=== PATIENT | female | born 1990 | race Caucasian/White ===

== ENCOUNTER 2019-05-15 19:25 | Emergency (ER) | payer MEDICAID ==
[~2019-05-15] VITALS: Ht 162.6 cm; Wt 81.8 kg
[2019-05-15 19:39] VITALS: BP 131/74; TEMP 99.5
[2019-05-15] MEDS ORDERED: TAMIFLU 75MG75 MG PO (20:59)
[2019-05-15 21:13] VITALS: PULSE 94
== END 2019-05-15 21:13 | disposition home or self-care (01) ==
LOC: COL.ER 19:25
DX: J11.1 Influenza due to unidentified influenza virus with other respiratory manifestations (principal); Z88.0 Allergy status to penicillin

== ENCOUNTER 2019-06-23 13:05 | Emergency (ER) | payer MEDICAID ==
[~2019-06-23] VITALS: Ht 160 cm; Wt 84.5 kg
[~2019-06-23 13:05] MED LIST: TAMIFLU 75MG75 MG PO
[2019-06-23 13:11] VITALS: BP 122/77; TEMP 97.3
[2019-06-23] MEDS ORDERED: ZOFRAN ODT4 MG PO (14:59)
[2019-06-23 15:15] VITALS: PULSE 79
== END 2019-06-23 15:15 | disposition home or self-care (01) ==
LOC: COL.ER 13:05
DX: S06.0X0A Concussion without loss of consciousness, initial encounter (principal); F17.210 Nicotine dependence, cigarettes, uncomplicated; Y04.0XXA Assault by unarmed brawl or fight, initial encounter; Y92.009 Unspecified place in unspecified non-institutional (private) residence as the place of occurrence of the external cause
CPT/HCPCS: J1885

== ENCOUNTER 2020-01-14 20:39 | Emergency (ER) | payer MEDICAID ==
[~2020-01-14] VITALS: Ht 160 cm; Wt 87.3 kg
[~2020-01-14 20:39] MED LIST changes: +ZOFRAN ODT4 MG PO
[2020-01-14 21:51] VITALS: BP 124/64; PULSE 78; TEMP 98.3
[2020-01-14] MEDS ORDERED: DOXYCYCLINE 10100 MG PO (22:23)
== END 2020-01-14 22:27 | disposition home or self-care (01) ==
LOC: COL.ER 20:39
DX: S70.362A Insect bite (nonvenomous), left thigh, initial encounter (principal); F17.210 Nicotine dependence, cigarettes, uncomplicated; Z88.0 Allergy status to penicillin; W57.XXXA Bitten or stung by nonvenomous insect and other nonvenomous arthropods, initial encounter

== ENCOUNTER 2020-02-22 21:08 | Emergency (ER) | payer MEDICAID ==
[~2020-02-22] VITALS: Ht 160 cm; Wt 89.8 kg
[~2020-02-22 21:08] MED LIST changes: +DOXYCYCLINE 10100 MG PO
[2020-02-22 21:11] VITALS: TEMP 97.8
[2020-02-22 21:41] LABS: BASO % 0.5 % (0.0-2.0); EOS # 0.3 (0.0-0.7); EOS % 4.6 % (0-4.0); GRAN # 4.8 (1.4-6.5); GRAN % 65.7 % (42.2-75.2); HEMATOCRIT 43.6 % (37.0-47.0); HEMOGLOBIN 14.1 g/dl (12.5-16.0); LYMPH # 1.6 (1.2-3.4); LYMPH % 21.4 % (20.0-51.0); MEAN CELL VOLUME 89 fl (80.0-100.0); MEAN CORPUSCULAR HEMOGLOBIN 29 pg (27.0-31.0); MEAN CORPUSCULAR HGB CONC 32 g/dl (33.0-37.0); MEAN PLATELET VOLUME 10.7 fl (7.4-10.4); MONO # 0.5 (0.1-0.6); MONO % 7.4 % (1.7-9.3); PLATELET COUNT 232 K/mm3 (130-400); RED BLOOD COUNT 4.88 M/mm3 (4.10-5.30); REDCELL DISTRIBUTION WIDTH-CV 12.9 % (11.5-14.5)
[2020-02-22 21:51] LABS: COLLECTION METHOD CLEAN CATCH
[2020-02-22 21:52] LABS: ALANINE AMINOTRANSFERASE 26 U/L (4-34); ALBUMIN 4.4 gm/dL (3.5-5.0); ALKALINE PHOSPHATASE 74 U/L (50-136); ANION GAP 8 mmol/L (7-16); AST,SGOT 26 U/L (15-37); BILIRUBIN,TOTAL 0.4 mg/dL (0.0-1.0); BLOOD UREA NITROGEN 9 mg/dL (7-17); CARBON DIOXIDE 25 mmol/L (22-30); CHLORIDE 107 mmol/L (98-107); GLUCOSE 88 mg/dL (74-106); LIPASE 66 U/L (23-300); POTASSIUM 3.9 mmol/L (3.4-5.0); SODIUM 140 mmol/L (137-145); TOTAL PROTEIN 7.7 gm/dL (6.4-8.2)
[2020-02-22 21:53] LABS: C-REACTIVE PROTEIN < 0.5 mg/dL (0.0-0.9)
[2020-02-22 22:09] LABS: AMORPHOUS CRYSTAL Present /uL; MUCOUS Present /lpf; PH 8 (5-8); URINE APPEARANCE Turbid; URINE BACTERIA Rare /hpf; URINE BILIRUBIN Negative (NEGATIVE); URINE BLOOD Negative (NEGATIVE); URINE COLOR Yellow; URINE GLUCOSE Negative (NEGATIVE); URINE KETONE Negative (NEGATIVE); URINE LEUKOCYTE ESTERASE Trace (NEGATIVE); URINE NITRATE Negative (NEGATIVE); URINE PROTEIN(semi-quant) Negative (NEGATIVE); URINE RBC 0-2 /hpf; URINE UROBILINOGEN Negative (NEGATIVE)
[2020-02-22] MEDS ORDERED: MACROBID 1100 MG/CAP PO (22:25)
[2020-02-22 22:50] VITALS: BP 146/70; PULSE 78
== END 2020-02-22 22:50 | disposition home or self-care (01) ==
LOC: COL.ER 21:08
PROVIDERS: Emergency Medicine
DX: R10.2 Pelvic and perineal pain (principal); N39.0 Urinary tract infection, site not specified; Z32.02 Encounter for pregnancy test, result negative; Z98.51 Tubal ligation status; Z88.0 Allergy status to penicillin
CPT/HCPCS: J1885; J2405; J3010; J7030

== ENCOUNTER 2020-04-07 00:03 | Emergency (ER) | payer MEDICAID ==
[~2020-04-07] VITALS: Ht 160 cm; Wt 86.4 kg
[~2020-04-07 00:03] MED LIST changes: +MACROBID 1100 MG/CAP PO
[2020-04-07 00:37] LABS: COLLECTION METHOD CLEAN CATCH
[2020-04-07 00:43] LABS: MUCOUS Present /lpf; PH 5 (5-8); URINE APPEARANCE Hazy; URINE BACTERIA None Seen /hpf; URINE BILIRUBIN Negative (NEGATIVE); URINE BLOOD 1+ (NEGATIVE); URINE COLOR Yellow; URINE GLUCOSE Negative (NEGATIVE); URINE KETONE Negative (NEGATIVE); URINE LEUKOCYTE ESTERASE 2+ (NEGATIVE); URINE NITRATE Negative (NEGATIVE); URINE PROTEIN(semi-quant) Negative (NEGATIVE); URINE UROBILINOGEN Negative (NEGATIVE)
[2020-04-07] MEDS ORDERED: MACROBID 1100 MG/CAP PO (01:05)
[2020-04-07] MEDS ORDERED: FLEXERIL5 MG PO (01:05)
[2020-04-07 01:10] VITALS: BP 132/72; PULSE 87; TEMP 97.6
== END 2020-04-07 01:15 | disposition home or self-care (01) ==
LOC: COL.ER 00:03
PROVIDERS: Nurse Practitioner Primary Care
DX: M62.838 Other muscle spasm (principal); N39.0 Urinary tract infection, site not specified; Z88.0 Allergy status to penicillin

== ENCOUNTER 2020-05-26 11:00 | Emergency (ER) | payer MEDICAID ==
[~2020-05-26] VITALS: Ht 160 cm; Wt 88.1 kg
[~2020-05-26 11:00] MED LIST changes: +FLEXERIL5 MG PO
[2020-05-26 11:06] VITALS: TEMP 96.8
[2020-05-26 11:40] LABS: BASO # 0.1 (0.0-0.2); BASO % 0.7 % (0.0-2.0); EOS # 0.3 (0.0-0.7); EOS % 4.5 % (0-4.0); GRAN # 4.7 (1.4-6.5); GRAN % 66.6 % (42.2-75.2); HEMATOCRIT 44.3 % (37.0-47.0); HEMOGLOBIN 14.2 g/dl (12.5-16.0); LYMPH # 1.4 (1.2-3.4); LYMPH % 19.4 % (20.0-51.0); MEAN CELL VOLUME 87 fl (80.0-100.0); MEAN CORPUSCULAR HEMOGLOBIN 28 pg (27.0-31.0); MEAN CORPUSCULAR HGB CONC 32 g/dl (33.0-37.0); MEAN PLATELET VOLUME 10.8 fl (7.4-10.4); MONO # 0.6 (0.1-0.6); MONO % 8.5 % (1.7-9.3); PLATELET COUNT 208 K/mm3 (130-400); RED BLOOD COUNT 5.11 M/mm3 (4.10-5.30); REDCELL DISTRIBUTION WIDTH-CV 13.5 % (11.5-14.5)
[2020-05-26 11:49] LABS: POTASSIUM 4.4 mmol/L (3.4-5.0)
[2020-05-26 11:53] LABS: ALBUMIN 4.2 gm/dL (3.5-5.0); BILIRUBIN,TOTAL 0.4 mg/dL (0.0-1.0); C-REACTIVE PROTEIN 0.6 mg/dL (0.0-0.9); CALCIUM 9.2 mg/dL (8.4-10.2); CREATININE, serum 0.69 (0.52-1.25); TOTAL PROTEIN 7.6 gm/dL (6.4-8.2)
[2020-05-26 13:41] LABS: COLLECTION METHOD CLEAN CATCH
[2020-05-26] MEDS ORDERED: NORCO 325 MG-51 TAB PO (13:52)
[2020-05-26 13:56] VITALS: BP 125/74; PULSE 79
[2020-05-26 13:56] LABS: MUCOUS Present /lpf; PH 5 (5-8); SQUAMOUS EPITHELIAL 0-2 /hpf; URINE APPEARANCE Clear; URINE BACTERIA None Seen /hpf; URINE BILIRUBIN Negative (NEGATIVE); URINE BLOOD Negative (NEGATIVE); URINE COLOR Yellow; URINE GLUCOSE Negative (NEGATIVE); URINE KETONE Negative (NEGATIVE); URINE LEUKOCYTE ESTERASE Negative (NEGATIVE); URINE NITRATE Negative (NEGATIVE); URINE PROTEIN(semi-quant) Negative (NEGATIVE); URINE RBC 0-2 /hpf; URINE UROBILINOGEN Negative (NEGATIVE)
== END 2020-05-26 14:00 | disposition home or self-care (01) ==
LOC: COL.ER 11:00
PROVIDERS: Nurse Practitioner
DX: K63.89 Other specified diseases of intestine (principal); F17.200 Nicotine dependence, unspecified, uncomplicated; Z88.0 Allergy status to penicillin; Z91.040 Latex allergy status
CPT/HCPCS: J2270; J2405; J7030; Q9967

== ENCOUNTER 2020-06-26 12:35 | Emergency (ER) | payer MEDICAID ==
[~2020-06-26] VITALS: Ht 160 cm; Wt 89.5 kg
[~2020-06-26 12:35] MED LIST changes: +NORCO 325 MG-51 TAB PO
[2020-06-26 12:59] VITALS: TEMP 97.3
[2020-06-26 15:09] LABS: BASO # 0.1 (0.0-0.2); BASO % 0.7 % (0.0-2.0); EOS # 0.4 (0.0-0.7); EOS % 4.8 % (0-4.0); GRAN # 5.5 (1.4-6.5); GRAN % 62.5 % (42.2-75.2); HEMATOCRIT 46.1 % (37.0-47.0); HEMOGLOBIN 14.8 g/dl (12.5-16.0); LYMPH % 22.4 % (20.0-51.0); MEAN CELL VOLUME 87 fl (80.0-100.0); MEAN CORPUSCULAR HEMOGLOBIN 28 pg (27.0-31.0); MEAN CORPUSCULAR HGB CONC 32 g/dl (33.0-37.0); MEAN PLATELET VOLUME 10.4 fl (7.4-10.4); MONO # 0.8 (0.1-0.6); MONO % 9.3 % (1.7-9.3); PLATELET COUNT 243 K/mm3 (130-400); REDCELL DISTRIBUTION WIDTH-CV 14.1 % (11.5-14.5)
[2020-06-26 15:28] LABS: ALANINE AMINOTRANSFERASE 29 U/L (4-34); ALBUMIN 4.5 gm/dL (3.5-5.0); ALKALINE PHOSPHATASE 68 U/L (50-136); ANION GAP 9 mmol/L (7-16); AST,SGOT 28 U/L (15-37); BILIRUBIN,TOTAL 0.4 mg/dL (0.0-1.0); BLOOD UREA NITROGEN 11 mg/dL (7-17); CALCIUM 9.5 mg/dL (8.4-10.2); CARBON DIOXIDE 25 mmol/L (22-30); CHLORIDE 106 mmol/L (98-107); CREATININE, serum 0.62 (0.52-1.25); GLUCOSE 87 mg/dL (74-106); LIPASE 55 U/L (23-300); POTASSIUM 4.4 mmol/L (3.4-5.0); SODIUM 140 mmol/L (137-145); TOTAL PROTEIN 7.9 gm/dL (6.4-8.2)
[2020-06-26 15:30] LABS: C-REACTIVE PROTEIN < 0.5 mg/dL (0.0-0.9)
[2020-06-26 17:05] VITALS: BP 106/60; PULSE 71
[2020-06-26 23:44] LABS: COLLECTION METHOD CLEAN CATCH
[2020-06-26 23:49] LABS: PH 5 (5-8); SQUAMOUS EPITHELIAL 0-2 /hpf; URINE APPEARANCE Clear; URINE BACTERIA None Seen /hpf; URINE BILIRUBIN Negative (NEGATIVE); URINE BLOOD Negative (NEGATIVE); URINE COLOR Yellow; URINE GLUCOSE Negative (NEGATIVE); URINE KETONE Negative (NEGATIVE); URINE LEUKOCYTE ESTERASE Negative (NEGATIVE); URINE NITRATE Negative (NEGATIVE); URINE PROTEIN(semi-quant) Negative (NEGATIVE); URINE RBC 0-2 /hpf; URINE UROBILINOGEN Negative (NEGATIVE)
== END 2020-06-26 17:05 | disposition home or self-care (01) ==
LOC: COL.ER 12:35
PROVIDERS: Nurse Practitioner Primary Care
DX: R10.30 Lower abdominal pain, unspecified (principal); R11.0 Nausea; F17.210 Nicotine dependence, cigarettes, uncomplicated; Z88.0 Allergy status to penicillin; Z90.710 Acquired absence of both cervix and uterus; Z90.721 Acquired absence of ovaries, unilateral
CPT/HCPCS: J1885; J2405; J7030

== ENCOUNTER 2020-07-20 18:34 | Emergency (ER) | payer MEDICAID ==
[~2020-07-20] VITALS: Ht 160 cm; Wt 86.4 kg
[2020-07-20 18:50] VITALS: TEMP 98.3
[2020-07-20 19:24] LABS: BASO % 0.5 % (0.0-2.0); EOS # 0.3 (0.0-0.7); EOS % 3.3 % (0-4.0); GRAN # 5.6 (1.4-6.5); GRAN % 72.6 % (42.2-75.2); HEMATOCRIT 48.5 % (37.0-47.0); HEMOGLOBIN 15.7 g/dl (12.5-16.0); LYMPH # 1.2 (1.2-3.4); LYMPH % 15.8 % (20.0-51.0); MEAN CELL VOLUME 87 fl (80.0-100.0); MEAN CORPUSCULAR HEMOGLOBIN 28 pg (27.0-31.0); MEAN CORPUSCULAR HGB CONC 32 g/dl (33.0-37.0); MEAN PLATELET VOLUME 10.7 fl (7.4-10.4); MONO # 0.6 (0.1-0.6); MONO % 7.5 % (1.7-9.3); PLATELET COUNT 243 K/mm3 (130-400); RED BLOOD COUNT 5.58 M/mm3 (4.10-5.30); REDCELL DISTRIBUTION WIDTH-CV 13.9 % (11.5-14.5)
[2020-07-20 19:44] LABS: ALBUMIN 4.7 gm/dL (3.5-5.0); BILIRUBIN,TOTAL 0.4 mg/dL (0.0-1.0); CALCIUM 9.2 mg/dL (8.4-10.2); CREATININE, serum 0.68 (0.52-1.25); TOTAL PROTEIN 8.9 gm/dL (6.4-8.2)
[2020-07-20 21:04] LABS: COLLECTION METHOD CLEAN CATCH
[2020-07-20 21:12] LABS: MUCOUS Present /lpf; PH 7 (5-8); SQUAMOUS EPITHELIAL 0-2 /hpf; URINE APPEARANCE Clear; URINE BACTERIA None Seen /hpf; URINE BILIRUBIN Negative (NEGATIVE); URINE BLOOD Negative (NEGATIVE); URINE COLOR Yellow; URINE GLUCOSE Negative (NEGATIVE); URINE KETONE Negative (NEGATIVE); URINE LEUKOCYTE ESTERASE Negative (NEGATIVE); URINE NITRATE Negative (NEGATIVE); URINE PROTEIN(semi-quant) Negative (NEGATIVE); URINE RBC 0-2 /hpf; URINE UROBILINOGEN Negative (NEGATIVE)
[2020-07-20] MEDS ORDERED: FLAGYL500 MG PO (21:17)
[2020-07-20] MEDS ORDERED: ARYMO ER15 MG PO (21:17)
[2020-07-20] MEDS ORDERED: CIPRO 500MG TA500 MG PO (21:17)
[2020-07-20] MEDS ORDERED: TYLENOL 325MG325 MG PO (21:17)
[2020-07-20] MEDS ORDERED: OXY IR5 MG PO (21:18)
[2020-07-20 21:47] VITALS: BP 136/94; PULSE 90
[2020-07-21] MEDS ORDERED: PEPCID 20MG TAB20 MG PO (15:22)
== END 2020-07-20 21:49 | disposition home or self-care (01) ==
LOC: COL.ER 18:34
PROVIDERS: Emergency Medicine
DX: K52.9 Noninfective gastroenteritis and colitis, unspecified (principal); Z88.0 Allergy status to penicillin; Z91.040 Latex allergy status; Z32.02 Encounter for pregnancy test, result negative
CPT/HCPCS: J2270; J2405; Q9967

== ENCOUNTER 2020-07-21 14:19 | Emergency (ER) | payer MEDICAID ==
[~2020-07-21] VITALS: Ht 160 cm; Wt 86.4 kg
[~2020-07-21 14:19] MED LIST changes: +ARYMO ER15 MG PO; +CIPRO 500MG TA500 MG PO; +FLAGYL500 MG PO; +OXY IR5 MG PO; +TYLENOL 325MG325 MG PO
[2020-07-21 14:26] VITALS: TEMP 97.9
[2020-07-21 14:48] LABS: BASO # 0.1 (0.0-0.2); BASO % 0.6 % (0.0-2.0); EOS # 0.3 (0.0-0.7); EOS % 3.1 % (0-4.0); GRAN # 6.2 (1.4-6.5); HEMATOCRIT 48.1 % (37.0-47.0); HEMOGLOBIN 15.7 g/dl (12.5-16.0); LYMPH # 1.8 (1.2-3.4); MEAN CELL VOLUME 87 fl (80.0-100.0); MEAN CORPUSCULAR HEMOGLOBIN 28 pg (27.0-31.0); MEAN CORPUSCULAR HGB CONC 33 g/dl (33.0-37.0); MEAN PLATELET VOLUME 10.4 fl (7.4-10.4); MONO # 0.7 (0.1-0.6); PLATELET COUNT 246 K/mm3 (130-400); RED BLOOD COUNT 5.53 M/mm3 (4.10-5.30); REDCELL DISTRIBUTION WIDTH-CV 13.9 % (11.5-14.5)
[2020-07-21 14:55] LABS: ALBUMIN 4.7 gm/dL (3.5-5.0); BILIRUBIN,TOTAL 0.4 mg/dL (0.0-1.0); CALCIUM 9.4 mg/dL (8.4-10.2); CREATININE, serum 0.88 (0.52-1.25)
[2020-07-21] MEDS ORDERED: PEPCID 20MG TAB20 MG PO (15:22)
[2020-07-21 15:55] VITALS: BP 121/79; PULSE 67
== END 2020-07-21 16:00 | disposition home or self-care (01) ==
LOC: COL.ER 14:19
PROVIDERS: Emergency Medicine
DX: R10.30 Lower abdominal pain, unspecified (principal); R11.2 Nausea with vomiting, unspecified; F17.210 Nicotine dependence, cigarettes, uncomplicated; Z88.0 Allergy status to penicillin; Z90.710 Acquired absence of both cervix and uterus
CPT/HCPCS: J1885; J3010

== ENCOUNTER 2020-08-01 09:32 | Day surgery (SDC) | payer MEDICAID ==
[~2020-08-01] VITALS: Ht 160 cm; Wt 87.2 kg
[~2020-08-01 09:32] MED LIST changes: +PEPCID 20MG TAB20 MG PO
[2020-08-01 09:49] VITALS: BP 143/96; PULSE 100; TEMP 97.2
[2020-08-01 11:35] VITALS: BP 112/87; PULSE 72; TEMP 97.7
[2020-08-01 11:50] VITALS: BP 118/78; PULSE 71
[2020-08-01 12:05] VITALS: BP 119/74; PULSE 71
--- NOTE | 2020-08-01 13:00 | NUR ---
1135 PATIENT ARRIVES TO [facility] AMBULATORY WITH SBA. GAIT IS STEADY. VSS. PATIENT REQUESTING APPLE JUICE AND JELLO. REPORTS SOME ABDOMINAL CRAMBPING, BUT OTHERWISE HAS NO COMPLAINTS. 1150 PATIENT ALERT. VSS. TOLERATED PO. REPORTS SOME GASSEOUS DISCOMFORT. 1210 IV DISCONTINUED. CATHETER INTACT. TOLERATED WELL. D/C INSTRUCTIONS GIVEN. QUESTIONS INVITED AND ANSWERED. PATIENT VERBALIZED UNDERSTANDING. 1220 PATIENT D/C'D TO POV WITH HER MOM PER W/C.
== END 2020-08-01 12:20 | disposition home or self-care (01) ==
LOC: SDCO 09:32
DX: D12.3 Benign neoplasm of transverse colon (principal); D12.8 Benign neoplasm of rectum; F41.9 Anxiety disorder, unspecified; F32.9 Major depressive disorder, single episode, unspecified; G40.909 Epilepsy, unspecified, not intractable, without status epilepticus; Z87.891 Personal history of nicotine dependence; Z88.0 Allergy status to penicillin; Z91.040 Latex allergy status
CPT/HCPCS: J2405; J2704; J7120

== ENCOUNTER 2020-08-30 14:11 | Inpatient (IN) | payer MEDICAID ==
[~2020-08-30] VITALS: Ht 160.1 cm; Wt 87.3 kg
[2020-09-11] VITALS (10 sets, daily range): BP systolic 92–128; BP diastolic 55–90; PULSE 78–92; TEMP 97.4–98.6
[2020-09-11 11:36] LABS: BASO # 0.1 (0.0-0.2); BASO % 0.6 % (0.0-2.0); EOS # 0.4 (0.0-0.7); GRAN # 6.6 (1.4-6.5); GRAN % 70.5 % (42.2-75.2); HEMOGLOBIN 15.8 g/dl (12.5-16.0); LYMPH # 1.4 (1.2-3.4); LYMPH % 14.9 % (20.0-51.0); MEAN CELL VOLUME 88 fl (80.0-100.0); MEAN CORPUSCULAR HEMOGLOBIN 29 pg (27.0-31.0); MEAN CORPUSCULAR HGB CONC 33 g/dl (33.0-37.0); MONO # 0.9 (0.1-0.6); MONO % 9.6 % (1.7-9.3); PLATELET COUNT 232 K/mm3 (130-400); RED BLOOD COUNT 5.47 M/mm3 (4.10-5.30); REDCELL DISTRIBUTION WIDTH-CV 13.9 % (11.5-14.5)
[2020-09-11 11:49] LABS: ALBUMIN 4.8 gm/dL (3.5-5.0); BILIRUBIN,TOTAL 0.6 mg/dL (0.0-1.0); CREATININE, serum 0.68 (0.52-1.25); POTASSIUM 3.9 mmol/L (3.4-5.0); TOTAL PROTEIN 8.5 gm/dL (6.4-8.2)
--- NOTE | 2020-09-11 18:15 | NUR ---
PATIENT ARRIVED TO ROOM 322-2 FROM PACU. PATIENT SETTELED INTO ROOM. POST-OP VSS. ABDOMINAL LAP SITES BEATRIZ WITH EDGES WELL APPROXIMATED. CALL LIGHT WITHIN REACH. FATHER PRESENT AT THE BEDSIDE. WILL REPORT OFF TO ONCOMING NURSE.
[2020-09-12 03:00] VITALS: BP 98/65; PULSE 63; TEMP 98.4
[2020-09-12 06:54] LABS: HEMATOCRIT 38.4 % (37.0-47.0)
[2020-09-12 06:58] LABS: HEMOGLOBIN 12.9 g/dl (12.5-16.0)
[2020-09-12 07:12] LABS: CALCIUM 8.3 mg/dL (8.4-10.2); CREATININE, serum 0.6 (0.52-1.25); MAGNESIUM 1.6 mg/dL (1.6-2.3); PHOSPHOROUS 2.5 mg/dL (2.5-4.5); POTASSIUM 4.2 mmol/L (3.4-5.0)
[2020-09-12 07:53] VITALS: BP 104/53; PULSE 74; TEMP 98.4
--- NOTE | 2020-09-12 09:31 | NUR ---
BRENDA met with the patient to discuss discharge plan. The patient lives in [place]. She states that her children are with her mother, Micaela (ph#[phone]), in [place] while she is here. She reports independence with ADLs and does not have any DME. The patient's PCP is Dr. Itz Luis and she receives her medications from [facility]. She reports no difficulties obtaining her meds. The patient does not have a DPOA-HC. She reports that she is in the process of getting a divorce. The patient plans to return home upon discharge. She states that her cousin plans to help her out when she returns home. No additional needs at this time.
--- NOTE | 2020-09-12 10:51 | NUR ---
Patient alert and oriented, answers questions appropriately. See assessment. Abdomen soft, non tender, non distended. Bowel sounds active x4 quads. No flatus. No bowel movement. Lap sites and low transverse incision with edges well approximated, no redness or drainage noted. Post op exercises reviewed with patient. C/o pain 6/10 to bilateral shoulders. No other c/o at this time.
[2020-09-12 11:39] VITALS: BP 113/62; PULSE 78; TEMP 97.3
--- NOTE | 2020-09-12 12:16 | NUR ---
First visit from the director search. No needs right now.
[2020-09-12 16:00] VITALS: BP 98/60; PULSE 70; TEMP 98.2
[2020-09-12 19:57] VITALS: BP 109/57; PULSE 82; TEMP 98.1
--- NOTE | 2020-09-12 21:00 | NUR ---
Patient resting in bed. States she is having some gas pain, but refused to get up and walk at this time. Lap sites x3 and transverse site to abdomen, edges well approximated. Bowel sounds audible. No additional needs. Call light in reach.
[2020-09-12 23:36] VITALS: BP 114/58; PULSE 80; TEMP 98
[2020-09-13 04:30] VITALS: BP 102/62; PULSE 73; TEMP 97.8
[2020-09-13 07:31] VITALS: BP 109/62; PULSE 68; TEMP 98.2
[2020-09-13] MEDS ORDERED: ULTRAM 50MG TAB50 MG PO (08:45)
[2020-09-13] MEDS ORDERED: ZOFRAN 4MG T4 MG/TAB PO (08:45)
--- NOTE | 2020-09-13 11:31 | NUR ---
Patient alert and oriented, answers questions appropriately. See assessment. Abdomen soft, non tender, non distended. Bowel sounds active x4 quads. +Flatus. +Bowel movement. Post op exercises reviewed with patient. Patient needs much encouragement for ambulation and activity. No c/o at this time.
[2020-09-13 11:54] VITALS: BP 112/58; PULSE 69; TEMP 98.6
[2020-09-13 16:00] VITALS: BP 116/63; PULSE 66; TEMP 98.5
[2020-09-13 20:05] VITALS: BP 111/66; PULSE 77; TEMP 98.5
[2020-09-14 00:26] VITALS: BP 109/61; PULSE 62; TEMP 98.1
[2020-09-14 04:00] VITALS: BP 128/72; PULSE 57; TEMP 98
--- NOTE | 2020-09-14 05:49 | NUR ---
Patient got ultram before bed and slept through the night. States she is feeling good this morning just a little sore. Patient has been ambulating in room independently and is tolerating meals.
[2020-09-14 07:56] VITALS: BP 117/76; PULSE 73; TEMP 98
--- NOTE | 2020-09-14 10:12 | NUR ---
PATIENT SHIFT ASSESSMENT COMPLETE. ABDOMINAL INCISIONS BEATRIZ WITH EDGES WELL APPROXIMATED ECCHYMOSIS AROUND INCISION SITES NOTED. ABDOMEN TENDER UPON PALPATION. PATIENT CURRENTLY RATING HER PAIN A 5-6/10. PATIENT GIVEN PO TRAMADOL. PATIENTS RIGHT HAND INT DISCONTINUED PER PENDING DISCHARGE. TIP INTACT. PATIENT TOLERATED WELL. SHOWER SET UP FOR PATIENT. PATIENT DENIES ANY ADDITIONAL NEEDS AT THIS TIME.
[2020-09-14 11:42] VITALS: BP 132/82; PULSE 89; TEMP 98.3
--- NOTE | 2020-09-14 12:20 | NUR ---
PATIENT DISCHARGE INSTRUCTIONS REVIEWED WITH PATIENT. QUESTIONS SOUGHT AND ANSWERED. PATIENT PERSONAL BELONGINGS GATHERED. PATIENT TAKEN TO PERSONAL VEHICLE VIA WHEELCHAIR BY SURGICAL STAFF. PATIENT DISCHARGED.
== END 2020-09-14 12:20 | disposition home or self-care (01) | DRG 330 ==
LOC: SURG 09-11 10:30 → INPTSU 09-11 10:30 → SURG 09-11 14:45
PROVIDERS: ADMIT Surgery
PROC: 0DBL0ZZ Excision of Transverse Colon, Open Approach (ICD-10-PCS; 2020-09-11)
PROC: 0DT Gastrointestinal System, Resection (ICD-10-PCS; principal; 2020-09-11 14:45)
DX: D12.3 Benign neoplasm of transverse colon (principal); K56.1 Intussusception; Z90.710 Acquired absence of both cervix and uterus; G40.909 Epilepsy, unspecified, not intractable, without status epilepticus; F41.9 Anxiety disorder, unspecified
CPT/HCPCS: A4314; A9284; J1100; J1650; J2250; J2270; J2405; J2704; J2795; J3010; J7120

== ENCOUNTER 2020-10-16 18:24 | Emergency (ER) | payer MEDICAID ==
[~2020-10-16] VITALS: Ht 160 cm; Wt 89.1 kg
[~2020-10-16 18:24] MED LIST changes: +ULTRAM 50MG TAB50 MG PO; +ZOFRAN 4MG T4 MG/TAB PO
[2020-10-16 18:35] VITALS: TEMP 98
[2020-10-16 19:45] LABS: BASO # 0.1 (0.0-0.2); BASO % 0.8 % (0.0-2.0); EOS # 0.3 (0.0-0.7); EOS % 4.1 % (0-4.0); GRAN % 63.4 % (42.2-75.2); HEMATOCRIT 44.9 % (37.0-47.0); HEMOGLOBIN 14.8 g/dl (12.5-16.0); LYMPH # 1.7 (1.2-3.4); LYMPH % 22.1 % (20.0-51.0); MEAN CELL VOLUME 89 fl (80.0-100.0); MEAN CORPUSCULAR HEMOGLOBIN 29 pg (27.0-31.0); MEAN CORPUSCULAR HGB CONC 33 g/dl (33.0-37.0); MEAN PLATELET VOLUME 11.7 fl (7.4-10.4); MONO # 0.7 (0.1-0.6); MONO % 9.3 % (1.7-9.3); PLATELET COUNT 272 K/mm3 (130-400); RED BLOOD COUNT 5.07 M/mm3 (4.10-5.30); REDCELL DISTRIBUTION WIDTH-CV 13.5 % (11.5-14.5)
[2020-10-16 19:47] LABS: COLLECTION METHOD CLEAN CATCH
[2020-10-16 20:04] LABS: ALBUMIN 4.6 gm/dL (3.5-5.0); BILIRUBIN,TOTAL 0.5 mg/dL (0.0-1.0); CALCIUM 9.3 mg/dL (8.4-10.2); CREATININE, serum 0.66 (0.52-1.25); POTASSIUM 4.2 mmol/L (3.4-5.0); TOTAL PROTEIN 8.3 gm/dL (6.4-8.2)
[2020-10-16 20:05] LABS: MUCOUS Present /lpf; PH 6 (5-8); SQUAMOUS EPITHELIAL 0-2 /hpf; URINE APPEARANCE Clear; URINE BACTERIA None Seen /hpf; URINE BILIRUBIN Negative (NEGATIVE); URINE BLOOD Negative (NEGATIVE); URINE COLOR Yellow; URINE GLUCOSE Negative (NEGATIVE); URINE KETONE Negative (NEGATIVE); URINE LEUKOCYTE ESTERASE Negative (NEGATIVE); URINE NITRATE Negative (NEGATIVE); URINE PROTEIN(semi-quant) Negative (NEGATIVE); URINE RBC 0-2 /hpf; URINE UROBILINOGEN Negative (NEGATIVE)
[2020-10-16] MEDS ORDERED: NORCO 325 MG-51 TAB PO ×3 (21:22→21:29)
[2020-10-16] MEDS ORDERED: ZOFRAN ODT4 MG PO ×3 (21:22→21:29)
[2020-10-16 22:00] VITALS: BP 121/84; PULSE 76
== END 2020-10-16 22:51 | disposition home or self-care (01) ==
LOC: COL.ER 18:24
PROVIDERS: Personal Emergency Response Attendant
DX: R10.32 Left lower quadrant pain (principal); R11.0 Nausea; R19.7 Diarrhea, unspecified; F17.210 Nicotine dependence, cigarettes, uncomplicated; Z85.038 Personal history of other malignant neoplasm of large intestine; Z90.710 Acquired absence of both cervix and uterus; Z90.721 Acquired absence of ovaries, unilateral
CPT/HCPCS: J2270; J2405; J7030; Q9967